=== PATIENT | female | born 1930 ===

== ENCOUNTER 2017-01-25 04:10 | Emergency (ER) | payer MEDICARE, OTHER ==
[~2017-01-25] VITALS: Ht 152.4 cm; Wt 84.5 kg
[2017-01-25 04:17] VITALS: BP 139/65
[2017-01-25] MEDS ORDERED: FURO20TA4 PO (04:26)
[2017-01-25] MEDS ORDERED: SIMV20TA6 PO (04:26)
[2017-01-25] MEDS ORDERED: CAND8TAB PO (04:26)
[2017-01-25] MEDS ORDERED: SITA100 PO (04:26)
[2017-01-25] MEDS ORDERED: CHOL100034 PO (04:26)
[2017-01-25] MEDS ORDERED: LEVO137T2 PO (04:26)
[2017-01-25] MEDS ORDERED: BISO5TAB13 PO (04:26)
[2017-01-25] MEDS ORDERED: ACET-784 PO (04:26)
[2017-01-25] MEDS ORDERED: HYDR25TA PO (04:26)
[2017-01-25] MEDS ORDERED: SPIR25TA4 PO (04:26)
[2017-01-25] MEDS ORDERED: METF500T4 PO (04:26)
[2017-01-25] MEDS ORDERED: OMEP10CA41 PO (04:26)
[2017-01-25] MEDS ORDERED: TRAZ-144 PO (04:26)
[2017-01-25] MEDS ORDERED: CETI-193 PO (04:26)
[2017-01-25] MEDS ORDERED: RIVA20TA PO (04:26)
[2017-01-25] MEDS ORDERED: VIT1CAPS47 PO (04:26)
[2017-01-25] MEDS ORDERED: SENN-30 PO (04:26)
[2017-01-25] MEDS ORDERED: AMLO5TAB4 PO (04:26)
[2017-01-26 10:13] LABS: GLUCOSE,POINT OF CARE 158 MG/DL (70-110)
== END 2017-01-25 05:28 | disposition left against medical advice (07) ==
LOC: EMS 04:12
DX: R10.84 Generalized abdominal pain (principal); R19.7 Diarrhea, unspecified; R11.0 Nausea; E11.9 Type 2 diabetes mellitus without complications; K21.9 Gastro-esophageal reflux disease without esophagitis; I10 Essential (primary) hypertension
CPT/HCPCS: 82962; 93005; 99283